=== PATIENT | male | born 1955 | race Caucasian/White ===

== ENCOUNTER 2020-05-03 08:53 | Inpatient (IN) | payer OTHER ==
[~2020-05-03] VITALS: Ht 175.3 cm; Wt 101.4 kg
[2020-05-03 08:54] VITALS: BP 164/95
[2020-05-03] MEDS ORDERED: ROSUVASTATIN CA10 MG PO (09:51)
[2020-05-03] MEDS ORDERED: TOPROL XL100 MG PO (09:51)
[2020-05-03 09:52] LABS: ABSOLUTE LYMPHOCYTES 0.9 thou/uL (0.8-5.3); ABSOLUTE MONOCYTES 0.2 thou/uL (0.0-1.2); ABSOLUTE NEUTROPHILS 5.5 thou/uL (1.6-8.1); BASOPHILS 0.5 %; EOSINOPHILS 0.3 %; HEMOGLOBIN 12.3 gm/dL (14.0-18.0); LYMPHOCYTES 13.3 %; MCH 31.2 pg (26.0-34.0); MCHC 33.2 g/dL (28.0-37.0); MCV 93.9 fL (80.0-100.0); MONOCYTES 3.6 %; MPV 7.1 fl. (7.2-11.1); NUCLEATED RBCS 0 /100WBC; PLATELET COUNT* 319 thou/uL (150-400); POLYS 82.3 %; RBC 3.94 mil/uL (4.50-6.00); RDW-CV 15.3 % (10.5-14.5); WBC 6.7 thou/uL (4.0-11.0)
[2020-05-03] MEDS ORDERED: ALLOPURINOL 10100 M3 PO (09:52)
[2020-05-03] MEDS ORDERED: LISINOPRIL20 MG PO (09:52)
[2020-05-03] MEDS ORDERED: GLYBURIDE-METF1 EAC1 PO (09:53)
[2020-05-03] MEDS ORDERED: LEVOTHYROXINE175 MC1 PO (09:53)
[2020-05-03] MEDS ORDERED: HYDROCHLOROTHIA25 M2 PO (09:53)
[2020-05-03 10:05] LABS: CALCIUM 8.9 mg/dL (8.5-10.1); POTASSIUM 4.7 mmol/L (3.5-5.1)
[2020-05-03 10:20] LABS: ALBUMIN 4.1 g/dL (3.4-5.0); TOTAL BILIRUBIN 0.3 mg/dL (<0.1-1.0); TOTAL PROTEIN 7.8 g/dL (6.4-8.2)
[2020-05-03 10:23] LABS: APTT 27.1 Seconds (25.0-31.3); PROTIME 10.5 Seconds (9.20-11.50)
[2020-05-03 10:52] LABS: URINE BILIRUBIN NEGATIVE (Negative); URINE BLOOD 1+ (Negative); URINE CLARITY CLEAR; URINE COLOR YELLOW; URINE GLUCOSE-RANDOM NEGATIVE (Negative); URINE KETONES NEGATIVE (Negative); URINE LEUKOCYTES-REFLEX NEGATIVE (Negative); URINE NITRITE-REFLEX NEGATIVE (Negative); URINE PROTEIN 1+ (Negative); URINE SPECIFIC GRAVITY >= 1.030 (1.005-1.030); URINE UROBILINOGEN 0.2 E.U./dl (0.2-1.0)
[2020-05-03 10:58] LABS: HYALINE CASTS 4-10 Moderate /LPF (None Seen); MUCUS 0-3 Light strn/LPF (None Seen); SQUAMOUS 0-3 Few /LPF (0-3)
[2020-05-03 11:00] LABS: BACTERIA-REFLEX None Seen /HPF (None Seen); CRYSTALS None Seen /LPF (None Seen); URINE RBC 0-2 Rare /HPF (0-2); URINE WBC-REFLEX 0-5 Rare /HPF (0-5)
[2020-05-03 12:51] VITALS: BP 128/77
[2020-05-03 13:05] VITALS: BP 124/74
[2020-05-03 16:00] VITALS: BP 115/70
[2020-05-03 16:19] LABS: ALBUMIN 3.2 g/dL (3.4-5.0); CALCIUM 7.7 mg/dL (8.5-10.1); CREATININE 1.9 mg/dL (0.6-1.3); PHOSPHORUS* 4.2 mg/dL (2.5-4.9); POTASSIUM 3.9 mmol/L (3.5-5.1)
[2020-05-03 20:00] VITALS: BP 100/59
[2020-05-04] VITALS: BP 108/58
[2020-05-04 03:06] LABS: GLYCOHEMOGLOBIN (HGB A1C) 7.7 % (4.8-5.6)
[2020-05-04 04:00] VITALS: BP 109/69
[2020-05-04 04:41] LABS: MCH 31.6 pg (26.0-34.0); MCHC 33.8 g/dL (28.0-37.0); MCV 93.6 fL (80.0-100.0); MPV 7.1 fl. (7.2-11.1); RBC 3.21 mil/uL (4.50-6.00); RDW-CV 15.4 % (10.5-14.5); WBC 5.2 thou/uL (4.0-11.0)
[2020-05-04 05:09] LABS: HEMOGLOBIN 10.2 gm/dL (14.0-18.0)
[2020-05-04 05:19] LABS: CALCIUM 7.8 mg/dL (8.5-10.1); CREATININE 1.8 mg/dL (0.6-1.3); POTASSIUM 3.8 mmol/L (3.5-5.1)
[2020-05-04 08:00] VITALS: BP 141/70
[2020-05-04 12:00] VITALS: BP 120/74
[2020-05-04 16:00] VITALS: BP 73/45
--- NOTE | 2020-05-04 17:03 | EKG ---
[place] [address] ELECTROCARDIOGRAM REPORT Name: WARRENANDERS Room: [address] ADM IN .R.#: [id number] Admission: 05/03/20 Attend Phys: Arlet Mayen MD Discharge: Date of : 51 Date of Service: 05/03/20899 Report #: [id number] THIS REPORT FOR: //name// [facility] ED Test Date: 2020-05-03 Test Time: 09:00:25 Pat Name: ANDERS KELLEY Department: Room: [facility] Gender: M Costing Analyst: ELIEL : 1955 Requested By: Blake Munoz Order Number: [id number] MD: Ernie Pineda Measurements Intervals [place] Rate: 55 P: 0 NE: 53 QRS: 9 QRSD: 123 T: 81 QT: 508 QTc: 486 Interpretive Statements Sinus rhythm First-degree AV block Incomplete left bundle branch block No previous ECG available for comparison Electronically Signed On 05-04-2020 17:02:57 DIE INSPECTOR by Ernie Pineda [email or web address] <ELECTRONICALLY SIGNED> By: Ernie Pineda MD, [facility] 05/04/20 1702 09 09 Ernie Pineda MD, [facility] /EPI
[2020-05-04 20:20] VITALS: BP 111/66
[2020-05-05] VITALS: BP 143/87
[2020-05-05 04:00] VITALS: BP 128/67
[2020-05-05 04:36] LABS: ABSOLUTE BASOPHILS 0.1 thou/uL (0.0-0.2); ABSOLUTE EOSINOPHILS 0.1 thou/uL (0.0-0.7); ABSOLUTE LYMPHOCYTES 1.7 thou/uL (0.8-5.3); ABSOLUTE MONOCYTES 0.4 thou/uL (0.0-1.2); ABSOLUTE NEUTROPHILS 3.1 thou/uL (1.6-8.1); EOSINOPHILS 1.4 %; HEMATOCRIT 28.4 % (42.0-52.0); HEMOGLOBIN 9.8 gm/dL (14.0-18.0); LYMPHOCYTES 31.1 %; MCH 31.8 pg (26.0-34.0); MCHC 34.4 g/dL (28.0-37.0); MCV 92.3 fL (80.0-100.0); MONOCYTES 7.9 %; MPV 6.8 fl. (7.2-11.1); NUCLEATED RBCS 0 /100WBC; PLATELET COUNT* 264 thou/uL (150-400); POLYS 58.6 %; RBC 3.08 mil/uL (4.50-6.00); RDW-CV 15.1 % (10.5-14.5); WBC 5.3 thou/uL (4.0-11.0)
[2020-05-05 05:29] LABS: CALCIUM 8.1 mg/dL (8.5-10.1); CREATININE 1.7 mg/dL (0.6-1.3); POTASSIUM 3.5 mmol/L (3.5-5.1)
[2020-05-05 10:35] VITALS: BP 128/67
[2020-05-05 12:00] VITALS: BP 131/83
[2020-05-05] MEDS ORDERED: CIPROFLOXIN HC2.5 M1 OPHTHALMIC (12:25)
--- NOTE | 2020-05-06 09:02 | CON ---
[address] [address] CONSULTATION Name: ANDERS KELLEY Room: [address] IN M.R.#: [id number] Admission: 05/03/20 Attend Phys: Arlet Mayen MD Discharge: 05/05/20 Date of : 51 Report #: [id number] THIS REPORT FOR: cc: Juan Low MD, Dean L. MD ~ Leslie Saldana MD DATE OF SERVICE: 05/04/2020 NEPHROLOGY CONSULTATION CONSULTING PHYSICIAN: Arlet Mayen MD REASON FOR NEPHROLOGY CONSULTATION: Elevated creatinine and rhabdomyolysis. REASON FOR ADMISSION: Weakness and fatigue. HISTORY OF PRESENT ILLNESS: This is a 64-year-old male with history of type 2 diabetes, hypothyroidism, hyperlipidemia and gout, came in with progressive weakness and fatigue. Weakness was more generalized, but more so in his legs. He said his PCP retired in May of last year and since then he has not seen anybody and ran out of his medicines. After an initial 90-day supply of medicines provided by his PCP in May of last year and recently saw a physician this past Monday and all his medications were initiated and since then he was feeling bad. When he came in, a Sandoval catheter was inserted and 3200 mL of urine output has been documented so far, I am suspecting he was retaining urine, but I do not have any documentation of it. He takes NSAIDs intermittently at home and he does take lisinopril/hydrochlorothiazide, which was recently started this past Monday, also takes a statin at home. He was found to have a creatinine of 2.0, which has been coming down with IV fluids down to 1.8, found to have a CPK of 6000, which has been coming down to 5000 now. He has been feeling a little better. Also, states for the last few days, he has not been eating and drinking well. When he came in, his blood glucose also was found to be low in his 30s. Does not report any difficulty urinating except for when he is lying down. ALLERGIES: PENICILLINS. REVIEW OF SYSTEMS: As mentioned in history of present illness, otherwise 10-point review of systems done, negative. FAMILY HISTORY: Reviewed and noncontributory. SOCIAL HISTORY: Does not smoke or take alcohol or use illicit drugs. [place] [address] CONSULTATION Name: WARRENANDERS Maddi Room: [address]#: [id number] Admission: 05/03/20 Attend Phys: Arlet Mayen MD Discharge: 05/05/20 Date of : 51 Report #: [id number] PAST MEDICAL AND SURGICAL HISTORY: Includes hypothyroidism, diabetes type 2, hypertension, thyroidectomy, tonsillectomy and adenoidectomy. HOME MEDICATIONS: Include metoprolol, rosuvastatin, lisinopril, allopurinol, glyburide, metformin, levothyroxine, hydrochlorothiazide, recently restarted these medicines after 9 months' gap. PHYSICAL EXAMINATION: VITAL SIGNS: His blood pressure is 141/70, pulse ox 99% on room air, temperature 37.1, pulse rate is 71, respiratory rate is 16. GENERAL: He is awake, alert, oriented x 3. HEAD AND EYES: Atraumatic, normocephalic. His conjunctivae seem to be injected and his eyes are watery. EARS, NOSE, AND THROAT: Normal ears and nose. Mucous membranes are moist. NECK: No JVD. CHEST: Bilaterally clear to auscultation. No crackles or wheezing. CARDIOVASCULAR: S1, S2 normal. No murmurs. ABDOMEN: Soft, nondistended, nontender. Bowel sounds are present. EXTREMITIES: Lower extremities, there was no lower extremity edema. NEUROLOGICAL FUNCTION: Grossly intact. SKIN: Dry. PSYCHIATRIC: Seems to be depressed. LABORATORY DATA: Hemoglobin 10.2, platelet count is 257. Sodium is 139, potassium is 3.8 and creatinine is 1.8 and BUN is 29. Creatinine was 2.1 when he came in. CPK was 6000, down to 5000 and other labs are reviewed. His hemoglobin A1c was 7.7. IMAGING: Chest x-ray and head CT were reviewed. ASSESSMENT: 1. Elevated creatinine, could be acute versus chronic kidney disease. Creatinine was 2.0 when he came in and this is in the setting of rhabdomyolysis, dehydration, volume depletion, poor oral intake and lisinopril/hydrochlorothiazide use at home and possible urinary retention. Intermittently, he does take NSAIDs at home. He is on a statin at home as well and all his home medications were restarted after 9-month gap this past Monday. His UA had no significant hematuria, 1+ protein with hyaline casts and renal ultrasound is pending. 2. Rhabdomyolysis, could be because of recent initiation of a statin. His CPK was 6000 when he came in. 3. Hypertension, recently restarted on lisinopril/hydrochlorothiazide. [address] [address] CONSULTATION Name: ANDERS KELLEY Room: [address] IN M.Earnestine.#: [id number] Admission: 05/03/20 Attend Phys: Arlet Mayen MD Discharge: 05/05/20 Date of : 51 Report #: [id number] 4. Possible urinary retention. 5. Hypoglycemia. Hemoglobin A1c 7.7, history of diabetes. He was not taking any medications for 9 months. Recently restarted on glyburide and metformin. 6. Hypothyroidism with a concern for myxedema. His TSH 80 on admission and free T4 0.47. We will defer to primary team for adjustment of his medications. 7. Gout. PLAN: 1. Creatinine and CPK improving with fluids, decrease IV fluids, normal saline to 100 mL an hour. 2. If his creatinine does not improve all the way with hydration, he can follow up with our office in 2-4 weeks after discharge. 3. Lisinopril/hydrochlorothiazide, metformin should all be held. 4. Statin should be held. Avoid all nephrotoxic agents. 5. Follow his renal ultrasound. 6. Follow CPK. 7. Nothing else to add from Nephrology standpoint at the moment and so I will be signing off now, but please call with any questions. Discussed with the patient and the patient's nurse. <ELECTRONICALLY SIGNED> By: Leslie Saldana MD 05/06/20 0902 1025 [id number] Saldana MD /nt
== END 2020-05-05 13:25 | disposition home or self-care (01) | DRG 557 ==
LOC: M.ERS 08:53 → M.2W 10:48 → M.TBA-ER 10:48 → M.2W 13:03
PROVIDERS: Emergency Medicine Emergency Medical Services; Internal Medicine; ADMIT Family Medicine; ATTEND Family Medicine
DX: M62.82 Rhabdomyolysis (principal); N17.0 Acute kidney failure with tubular necrosis; G93.41 Metabolic encephalopathy; N39.0 Urinary tract infection, site not specified; E03.9 Hypothyroidism, unspecified; I10 Essential (primary) hypertension; E78.5 Hyperlipidemia, unspecified; M10.9 Gout, unspecified; E11.649 Type 2 diabetes mellitus with hypoglycemia without coma; Z20.822 Contact with and (suspected) exposure to COVID-19; Z79.899 Other long term (current) drug therapy; Z88.0 Allergy status to penicillin; Z79.84 Long term (current) use of oral hypoglycemic drugs; Z91.14 Patient's other noncompliance with medication regimen

== ENCOUNTER 2020-08-07 19:02 | Emergency (ER) | payer OTHER ==
[~2020-08-07] VITALS: Ht 180.3 cm; Wt 85.7 kg
[~2020-08-07 19:02] MED LIST: ALLOPURINOL 10100 M3 PO; CIPROFLOXIN HC2.5 M1 OPHTHALMIC; GLYBURIDE-METF1 EAC1 PO; HYDROCHLOROTHIA25 M2 PO; LEVOTHYROXINE175 MC1 PO; LISINOPRIL20 MG PO; ROSUVASTATIN CA10 MG PO; TOPROL XL100 MG PO
[2020-08-07 19:27] LABS: ABSOLUTE LYMPHOCYTES 0.7 thou/uL (0.8-5.3); ABSOLUTE MONOCYTES 0.2 thou/uL (0.0-1.2); ABSOLUTE NEUTROPHILS 3.1 thou/uL (1.6-8.1); BASOPHILS 0.4 %; EOSINOPHILS 0.3 %; HEMATOCRIT 32.7 % (42.0-52.0); HEMOGLOBIN 11.1 gm/dL (14.0-18.0); LYMPHOCYTES 18.1 %; MCH 30.5 pg (26.0-34.0); MCHC 33.9 g/dL (28.0-37.0); MCV 89.9 fL (80.0-100.0); MONOCYTES 5.4 %; MPV 6.6 fl. (7.2-11.1); NUCLEATED RBCS 0 /100WBC; PLATELET COUNT* 180 thou/uL (150-400); POLYS 75.8 %; RBC 3.63 mil/uL (4.50-6.00); RDW-CV 13.5 % (10.5-14.5)
[2020-08-07 19:36] LABS: CALCIUM 8.7 mg/dL (8.5-10.1); CREATININE 1.1 mg/dL (0.6-1.3); POTASSIUM 3.8 mmol/L (3.5-5.1)
[2020-08-07 19:40] LABS: ALBUMIN 3.9 g/dL (3.4-5.0); MAGNESIUM 1.7 mg/dL (1.8-2.4); TOTAL BILIRUBIN 0.4 mg/dL (<0.1-1.0); TOTAL PROTEIN 7.5 g/dL (6.4-8.2)
[2020-08-07 20:08] LABS: URINE BILIRUBIN NEGATIVE (Negative); URINE BLOOD NEGATIVE (Negative); URINE CLARITY CLEAR; URINE COLOR YELLOW; URINE GLUCOSE-RANDOM NEGATIVE (Negative); URINE KETONES NEGATIVE (Negative); URINE LEUKOCYTES-REFLEX NEGATIVE (Negative); URINE NITRITE-REFLEX NEGATIVE (Negative); URINE PROTEIN 1+ (Negative); URINE SPECIFIC GRAVITY >= 1.030 (1.005-1.030); URINE UROBILINOGEN 0.2 E.U./dl (0.2-1.0)
[2020-08-07 21:28] VITALS: BP 169/92
--- NOTE | 2020-08-08 12:55 | EKG ---
[place] [address] ELECTROCARDIOGRAM REPORT Name: ANDERS KELLEY Room: [facility]#: [id number] Admission: 08/07/20 Attend Phys: Discharge: 08/07/20 Date of : 51 Date of Service: 08/07/20 1907 Report #: [id number] THIS REPORT FOR: //name// [facility] ED Test Date: 2020-08-07 Test Time: 19:07:54 Pat Name: ANDERS KELLEY Department: Room: Gender: Bench Examiner: [place] : 1955 Requested By: Argentina Morris Order Number: [id number] MD: Paramjit Avalos Measurements Intervals [place] Rate: 63 P: 39 [place]: 163 QRS: 17 QRSD: 102 T: 52 QT: 460 QTc: 471 Interpretive Statements Sinus rhythm Compared to ECG 05/03/2020 09:00:25 rate has increased Electronically Signed On 08-08-2020 12:55:39 CDT by Paramjit Avalos [email or web address] <ELECTRONICALLY SIGNED> By: Paramjit Avalos MD, [facility] 08/08/20 1255 06 06 Paramjit Avalos MD, [facility] /EPI
== END 2020-08-07 21:29 | disposition home or self-care (01) ==
LOC: M.ERS 19:02
PROVIDERS: Emergency Medicine
DX: E11.649 Type 2 diabetes mellitus with hypoglycemia without coma (principal); E03.9 Hypothyroidism, unspecified; I10 Essential (primary) hypertension; E78.00 Pure hypercholesterolemia, unspecified; Z79.899 Other long term (current) drug therapy